=== PATIENT | female | born 1955 | race Caucasian/White ===

== ENCOUNTER → 2016-03-24 | Outpatient (CLI) | payer OTHER ==
--- NOTE | 2016-03-25 16:42 | DX ---
DEXA Bone Mineral Densitometry Clinical Indications: Osteoporosis. Technique: Bone Mineral Densitometry (BMD) by Dual Energy X-Ray Absorptiometry (DEXA) was performed utilizing the [employer] scanner. The lumbar spine was evaluated in the AP projection. The bilat eral hips and forearm were evaluated in the AP projection. Vertebral fracture assessment was also p erformed. Comparison: January 03, 2014. AP Lumbar Spine: The L1, L2, L3, and L4 vertebral bodies were evaluated. BMD: 0.794 gm/cm2. T-score: -3.1 SD. Z-score: -1.6 SD. -5.6% change. AP Left Hip: Total BMD: 0.695 gm/cm2. T-score: -2.5 SD. Z-score: -1.3 SD. -1.7% change. AP Right Hip: Total BMD: 0.640 gm/cm2. T-score: -2.9 SD. Z-score: -1.7 SD. -5.0% decrease. AP Left Forearm, 03/10: BMD: 0.660 gm/cm2. T-score: -2.5 SD. Z-score: -1.6 SD. -6.5% decrease. Vertebral Fracture Assessment: No significant fracture deformity. No prevertebral aortic calcifica tion, significant marginal bone spurring, facet arthrosis, or intrinsic vertebral body sclerosis that would effect the accuracy of the lumbar spine BMD measurement. Conclusion: Considering the lowest measured site, the patient is osteoporotic. Worsening bone waste examiner al density compared to prior examination The ten year FRAX risk for any major osteoporotic fracture, which excludes the risk for a wrist fract ure, is 23.7 % and for a hip fracture is 8.1 %. Any bone loss in this patient is probably related to aging or estrogen deficiency. Recommendations 1. Consider excluding secondary metabolic causes of bone loss (reported to be present in as many as 3 0% of patients with normal Z-scores). 2. Laboratory evaluation might include CBC, TSH, calcium, phosphorous, albumin, creatinine, alkaline phosphatase, PTH, serum electrophoresis (SPEP or UPEP), and antitissue transglutaminase antibody lev els (celiac disease) and hydroxy vitamin D3, as well as a 24-hour urine calcium. If secondary causes are excluded, then consider initiating an antiresorptive agent such as bisphosphonate, nasal spray c alcitonin or raloxifene or an anabolic agent such as teriparatide. 3. Calcium intake should be at least 1500 per day and vitamin D intake at least 800 international un its per day. 4. The patient should be encouraged to participate in a regular exercise program that includes weigh tbearing and muscle strengthening regimens. 5. Recommend follow-up DEXA in one year to assess the e fficacy of pharmacologic intervention or correction of appropriate secondary cause.
== END ==
LOC: FIMAGING 10:19
PROVIDERS: ATTEND Internal Medicine
DX: M81.0 Age-related osteoporosis without current pathological fracture (principal)

== ENCOUNTER → 2017-02-04 | Outpatient (CLI) | payer OTHER | LOC: BMCIMAGING 09:14 | PROVIDERS: ATTEND Internal Medicine | DX: Z12.31 Encounter for screening mammogram for malignant neoplasm of breast (principal) | CPT/HCPCS: G0202 ==

== ENCOUNTER → 2018-02-08 | Outpatient (CLI) | payer OTHER | LOC: BMCIMAGING 12:15 | PROVIDERS: ATTEND Internal Medicine | DX: Z12.31 Encounter for screening mammogram for malignant neoplasm of breast (principal) ==